=== PATIENT | male | born 1965 | race Caucasian/White ===

== ENCOUNTER 2019-03-03 08:21 | Day surgery (SDC) | payer OTHER ==
[2019-03-03 08:39] VITALS: BMI 34.9
[2019-03-03] MEDS ORDERED: CEFAZOLIN 1 GM/D5W 2 GM/100 ML BAG ONE (08:41)
[2019-03-03 09:37] VITALS: TEMP 98.7
[2019-03-03 10:05] VITALS: PULSE 60
[2019-03-03 11:11] LABS: BASO % 0.6 % (0-2.0); EOS % 1.7 % (0-4.5); HEMATOCRIT 40.2 % (35.4-49); HEMOGLOBIN 13.4 GM/dL (11.7-16.9); INR 1.4 (0.83-1.09); MCH 34.3 pg (25.7-33.7); MCHC 33.5 g/dl (32.0-35.9); MEAN CELL VOLUME 102.5 fl (80-96); MEAN PLT VOLUME 8.9 fl (7.5-11.1); MONO % 10.7 % (3.8-10.2); PLATELET COUNT 135 K/MM3 (134-434); PROTHROMBIN TIME (PATIENT) 16.6 SEC (9.7-13.0); RBC 3.92 M/mm3 (4.00-5.60); RDW 12.9 % (11.9-15.9); WHITE BLOOD COUNT 5.8 K/mm3 (4.0-10.0)
[2019-03-03 11:34] VITALS: BP 125/82
[2019-03-03 12:09] LABS: ALBUMIN 2.9 g/dl (3.4-5.0); BILIRUBIN,DIRECT 0.7 mg/dL (0.0-0.2); BILIRUBIN,TOTAL 1.4 mg/dL (0.2-1); BLOOD UREA NITROGEN 5.9 mg/dL (7-18); CALCIUM 8.8 mg/dL (8.5-10.1); CREATININE 0.6 mg/dL (0.55-1.3); POTASSIUM 3.9 mmol/L (3.5-5.1); TOT PROT 6.4 g/dl (6.4-8.2)
--- NOTE | 2019-03-04 16:13 | PATH ---
Surgical Pathology Report Patient Name: NURIA BRUCE [facility]. Rec. #: [id number] /Age/Gender: 1965 (Age: 53) / M Account: [id number] Location: [facility]-ENDOSCOPY Taken: 03/03/2019 Received: 03/03/2019 Reported: 03/04/2019 Physicians: Sathish Walsh M.D. Specimen(s) Received A: SECOND PORTION DUODENUM AND BULB B: ANTRUM Clinical History Screening for varices Postoperative diagnosis: Early varices, gastric ulcer, gastritis Final Diagnosis A. DUODENUM, SECOND PORTION AND DUODENAL BULB, BIOPSY: DUODENAL MUCOSA WITH SMALL LYMPHOID AGGREGATE. B. STOMACH, ANTRUM, BIOPSY: GASTRIC ANTRAL MUCOSA WITH MODERATE CHRONIC GASTRITIS. IMMUNOHISTOCHEMICAL STAIN FOR H. PYLORI IS NEGATIVE. Electronically Signed Staci Fitch M.D. Gross Description A. Received in formalin, labeled "biopsy second portion of duodenum and duodenal bulb" are 4 mata, irregular portions of soft tissue ranging from 0.1-0.4 cm. in greatest dimension. The specimens are submitted in toto in one cassette. B. Received in formalin, labeled "biopsy antrum" are 4 mata, irregular portions of soft tissue ranging from 0.2-0.5 cm. in greatest dimension. The specimens are submitted in toto in one cassette. 03/03/201903/03/2019
== END 2019-03-03 10:35 | disposition home or self-care (01) ==
LOC: JASU-ENDO 08:21
PROVIDERS: ATTEND Internal Medicine Gastroenterology
PROC: 0DB68ZX Excision of Stomach, Via Natural or Artificial Opening Endoscopic, Diagnostic (ICD-10-PCS; principal; 2019-03-03 09:00)
DX: I85.00 Esophageal varices without bleeding (principal); K21.0 Gastro-esophageal reflux disease with esophagitis; K25.9 Gastric ulcer, unspecified as acute or chronic, without hemorrhage or perforation; K29.70 Gastritis, unspecified, without bleeding
CPT/HCPCS: 36415; 80053; 82248; 83036; 85025; 85610; 86140; 88305-TC; 88342-TC

== ENCOUNTER 2019-07-04 08:14 | Day surgery (SDC) | payer OTHER ==
[2019-07-03 12:55] VITALS: BMI 30.8
[2019-07-04] MEDS ORDERED: TETRACAINE/BENZOCAINE/BUTAMBEN 20 GM SPR TP ONE (09:17)
[2019-07-04 09:53] VITALS: TEMP 98.3
[2019-07-04 10:35] VITALS: BP 116/84; PULSE 71
--- NOTE | 2019-07-07 17:22 | PATH ---
Surgical Pathology Report Patient Name: NURIA BRUCE [facility]. Rec. #: [id number] /Age/Gender: 1965 (Age: 54) / M Account: [id number] Location: [facility]-ENDOSCOPY Taken: 07/04/2019 Received: 07/04/2019 Reported: 07/07/2019 Physicians: Sathish Walsh M.D. Specimen(s) Received ANTRAL ULCERATED POLYP BX Clinical History History of pyloric ulcer Postoperative diagnosis: Ulcerated polyp Final Diagnosis ANTRAL ULCERATED POLYP, BIOPSY: POLYPOID GASTRIC ANTRAL MUCOSA WITH SEVERE CHRONIC ACTIVE GASTRITIS AND REACTIVE/REGENERATIVE CHANGES. IMMUNOHISTOCHEMICAL STAIN FOR H. PYLORI IS NEGATIVE. Electronically Signed Staci Fitch M.D. Gross Description Received in formalin, labeled "antral ulcerated polyp" are 3 mata, irregular portions of soft tissue ranging from 0.3-0.5 cm. in greatest dimension. The specimens are submitted in toto in one cassette. 07/04/2019 saudi07/04/2019
== END 2019-07-04 10:35 | disposition home or self-care (01) ==
LOC: JASU-ENDO 08:14
PROVIDERS: ATTEND Internal Medicine Gastroenterology
PROC: 0DB68ZX Excision of Stomach, Via Natural or Artificial Opening Endoscopic, Diagnostic (ICD-10-PCS; principal; 2019-07-04 09:00)
DX: K31.7 Polyp of stomach and duodenum (principal)
CPT/HCPCS: 88305-TC

== ENCOUNTER → 2020-04-29 | Day surgery (SDC) | payer OTHER ==
[2020-04-28 14:23] VITALS: BMI 35.3
[~2020-04-29] MED LIST: BENZOIN/ALOE VERA/STORAX/TOLU 58 ML BOTTLE ONE; BUPIVACAINE HCL/PF 0.5% (5 MG/ML) 30 ML VIAL IJ ONE; DESFLURANE GAS 240 ML BOTTLE IH ONE; DEXAMETHASONE SOD PHOSPHATE 4 MG/1 ML VIAL ONE; LACTATED RINGERS SOLUTION 1,000 ML IV SCH; LIDOCAINE HCL 1%, 10 MG/ML (20ML VIAL) ONE; LIDOCAINE HCL 1%, 10 MG/ML (20ML VIAL) PNB ONE; MIDAZOLAM HCL 2 MG/2 ML SINGLE DOSE VIAL ONE; ONDANSETRON 4 MG/2 ML VIAL IVPUSH PRN; PROPOFOL 20 ML ONE; SUCCINYLCHOLINE CHLORIDE 200 MG/10 ML SYRINGE ONE; ceFAZolin SODIUM 1 GM VIAL IVPB ONE; ceFAZolin SODIUM 1 GM VIAL ONE; oxyCODONE HCL 5 MG TABLET PO PRN
--- NOTE | 2020-04-29 11:00 | OP ---
DATE OF OPERATION: 04/29/2020 SURGEON: Tala Stephens DPM PRODUCT STRATEGY DIRECTOR: Dilip Geller DPM PREOPERATIVE DIAGNOSES: Left plantarflexed 4th metatarsal with hypertrophic plantar condyles chronic tender pretrophic ulcer sub 4th metatarsal head left foot, onycholysis left hallux nail. POSTOPERATIVE DIAGNOSES: Same OPERATION: 1. Left 4th plantar condylectomy. 2. Temporary Removal of hallux nail, left foot. TYPE OF ANESTHESIA: Local MAC; 10 mL of 1:1 lidocaine 1% with 0.5% Marcaine plain was given in and around the proposed incision site. ESTIMATED BLOOD LOSS: 20 mL. HEMOSTASIS: Achieved with meticulous dissection and ankle tourniquet at 250 mmHg. DESCRIPTION OF PROCEDURE: Patient was brought to the operating room and placed supine on the operating room table. After adequate IV sedation was administered, 10 mL of a 1:1 lidocaine/Marcaine mix were given in and around the proposed incision site in a tariq block fashion. The foot was then prepped and draped in the usual aseptic fashion. A well padded ankle tourniquette was applied prior to prep. Attention was then directed to a lazy S incision over the left 4th metatarsophalangeal joint. This dissection was meticulously carried down to the level of the capsule, noting the extensor tendon which was gently retracted. All vital structures were identified and gently retracted. Utilizing a 15-blade an incision was created over the metatarsal head down to bone. Soft tissue was liberated medially and laterally. The ligaments were released allowing further accessibility to the plantar aspect of the 4th metatarsal head. A McGlamry elevator was used to free up the plantar aspect of the 4th metatarsophalangeal joint left foot. This allowed for better exposure of the plantar condyles through the dorsal wound. Utilizing a small sagittal saw the plantar condyles were resected and removed for pathology. Utilizing a small bur this area was remodeled and any spicules removed. Area was palpated no remaining spicules noted. The area was then copiously irrigated with normal saline with bacitracin and the wound was then closed in layers. 3.0 vicryl for subcutaneous closure in a simple interrupted suture fashion. Next attention was directed to the left big toe. Utilizing a [place], the left hallux nail was then liberated from the nail bed and avulsed and sent to pathology. Telfa dressing was applied over nail bed area. Betadine soaked adaptic was applied to incision over 4th mpj left. Dry sterile dressing was applied. Raymon bandage. The patient tolerated the above anesthesia and surgical procedure well and left the operating room, went to the recovery area with vital signs stable and vascular status intact to all digits of the left foot. BEATRICE Davis/[id number] [facility] HOSPITALTerese
[2020-04-29 11:57] VITALS: BP 126/73; PULSE 89; TEMP 97.3
--- NOTE | 2020-04-29 17:46 | OP ---
Operative Note - Note: Operative Date: 04/29/20 Pre-Operative Diagnosis: Plantarflexed 4th metatarsal left with hypertrophic plantar condyles Operation: Plantar condylectomy 4th metatarsal Findings: hypertrophic bone and soft tissue Implants: none Post-Operative Diagnosis: Same as Pre-op Surgeon: Tala Stephens Career Orientation Teacher: Dilip Geller Anesthesia: Local, MAC Specimens Removed: hypertrophic bone Estimated Blood Loss (mls): 5 Operative Report Dictated: No
--- NOTE | 2020-04-30 15:46 | PATH ---
Surgical Pathology Report Patient Name: NURIA BRUCE Med. Rec. #: [id number] /Age/Gender: 1965 (Age: 55) / M Account: [id number] Location: [facility] SURGICAL Taken: 04/29/2020 Received: 04/29/2020 Reported: 04/30/2020 Physicians: Tala Stephens DPM Specimen(s) Received A: TISSUE FROM LEFT FORTH METATARSAL B: TOE NAIL FROM LEFT BIG TOE Clinical History Metatarsal pain/chronic ulceration left foot Final Diagnosis A. TISSUE FROM LEFT FOURTH METATARSAL, EXCISION: PORTION OF CARTILAGE CAPPED BONE WITH FATTY MARROW. NEGATIVE FOR OSTEOMYELITIS. B. TOENAIL FROM LEFT BIG TOE, EXCISION: PORTION OF NAIL PLATE WITH FOCAL HEMORRHAGE AND ACUTE INFLAMMATION. PAS STAIN FAILED TO REVEAL FUNGAL HYPHAE. Electronically Signed Benita Mcwilliams M.D. Gross Description A. Received in formalin labeled "tissue from left fourth metatarsal," is a 0.9 x 0.6 x 0.2 cm mata-red portion of bone. The specimen is submitted in toto in one cassette, following decalcification. B. Received in formalin labeled "toenail from left big toe," is a 2.5 x 1.5 x 0.2 cm yellow-brown portion of unguis. Administration Clerk sections are submitted in one cassette. /04/29/2020 saudi/04/29/2020
== END | disposition home or self-care (01) ==
LOC: JASU-SURG 04:18
PROVIDERS: ATTEND Podiatrist Foot Surgery
PROC: 0HDRXZZ Extraction of Toe Nail, External Approach (ICD-10-PCS; 2020-04-29)
PROC: 0QBP0ZZ Excision of Left Metatarsal, Open Approach (ICD-10-PCS; principal; 2020-04-29 07:30)
DX: M21.6X2 Other acquired deformities of left foot (principal); M89.371 Hypertrophy of bone, right ankle and foot; L97.529 Non-pressure chronic ulcer of other part of left foot with unspecified severity; L60.1 Onycholysis
CPT/HCPCS: 73630-TC-LT; 82962; 88304-TC; 88305-TC; 88311-TC; 88312-TC; 94760; 97116-GP

== ENCOUNTER 2020-07-28 06:05 | Day surgery (SDC) | payer OTHER ==
[2020-07-27 17:53] VITALS: BMI 35.9
[2020-07-28] MEDS ORDERED: PROPOFOL 20 ML ONE ×2 (08:34→11:46)
[2020-07-28] MEDS ORDERED: MIDAZOLAM HCL 2 MG/2 ML SINGLE DOSE VIAL ONE ×3 (08:34→08:38)
[2020-07-28] MEDS ORDERED: DEXAMETHASONE SOD PHOSPHATE/PF 10 MG/ML SDV ONE (08:46)
[2020-07-28] MEDS ORDERED: ROCURONIUM BROMIDE 50 MG/5 ML SYRINGE ONE ×2 (09:17→09:58)
[2020-07-28] MEDS ORDERED: SUCCINYLCHOLINE CHLORIDE 200 MG/10 ML SYRINGE ONE (09:17)
[2020-07-28] MEDS ORDERED: HYDROmorphone HCl 2 MG/ML VIAL ONE (09:34)
[2020-07-28] MEDS ORDERED: ceFAZolin SODIUM 1 GM VIAL IVPB ONE (09:45)
[2020-07-28] MEDS ORDERED: VASOPRESSIN 20 UNITS/ML VIAL IV ONE (10:03)
[2020-07-28] MEDS ORDERED: oxyCODONE HCL 5 MG TABLET PO PRN (10:17)
[2020-07-28] MEDS ORDERED: ONDANSETRON 4 MG/2 ML VIAL IVPUSH PRN (10:17)
[2020-07-28] MEDS ORDERED: DEXAMETHASONE SOD PHOSPHATE 4 MG/1 ML VIAL ONE (10:26)
[2020-07-28] MEDS ORDERED: ceFAZolin SODIUM 1 GM VIAL ONE ×2 (10:26→13:38)
[2020-07-28] MEDS ORDERED: LACTATED RINGERS SOLUTION 1,000 ML IV SCH (10:30)
[2020-07-28] MEDS ORDERED: GLYCOPYRROLATE 0.2 MG/1 ML VIAL ONE (11:36)
[2020-07-28] MEDS ORDERED: NEOSTIGMINE METHYLSULFATE 0.5 MG/1 ML - 10 ML MDV ONE (11:36)
[2020-07-28] MEDS ORDERED: ONDANSETRON 4 MG/2 ML VIAL ONE (12:57)
[2020-07-28] MEDS ORDERED: CEFAZOLIN 3 GM in DEXTROSE 5%-WATER - 100 ML IVPB ONE (13:00)
[2020-07-28 13:37] VITALS: TEMP 98
[2020-07-28 16:06] VITALS: BP 152/101; PULSE 106
== END 2020-07-28 15:45 | disposition home or self-care (01) ==
LOC: JASU-SURG 06:05
PROVIDERS: ATTEND Orthopaedic Surgery
PROC: 0PSF06Z Reposition Right Humeral Shaft with Intramedullary Internal Fixation Device, Open Approach (ICD-10-PCS; principal; 2020-07-28 09:30)
DX: S42.291A Other displaced fracture of upper end of right humerus, initial encounter for closed fracture (principal); X58.XXXA Exposure to other specified factors, initial encounter; Y93.9 Activity, unspecified; Y92.9 Unspecified place or not applicable; Y99.9 Unspecified external cause status
CPT/HCPCS: 24516; C1713; 76000-TC-FY; 82962; 94760

== ENCOUNTER 2020-09-01 04:17 | Day surgery (SDC) | payer OTHER ==
[2020-08-30 16:56] VITALS: BMI 35.9
[2020-09-01] MEDS ORDERED: LIDOCAINE HCL 1%, 10 MG/ML (20ML VIAL) ONE (10:22)
[2020-09-01] MEDS ORDERED: MIDAZOLAM HCL 2 MG/2 ML SINGLE DOSE VIAL ONE ×2 (10:23)
[2020-09-01] MEDS ORDERED: HYDROmorphone HCl 2 MG/ML VIAL ONE (10:23)
[2020-09-01] MEDS ORDERED: ceFAZolin SODIUM 1 GM VIAL IVPB ONE (10:33)
[2020-09-01] MEDS ORDERED: LIDOCAINE HCL 1%, 10 MG/ML (20ML VIAL) NR ONE ×2 (10:36)
[2020-09-01] MEDS ORDERED: KETAMINE HCL 200 MG/20 ML VIAL ONE (10:41)
[2020-09-01 12:14] VITALS: BP 144/89; PULSE 75; TEMP 97.5
[2020-09-01] MEDS ORDERED: ONDANSETRON 4 MG/2 ML VIAL IVPUSH PRN (12:37)
[2020-09-01] MEDS ORDERED: oxyCODONE HCL 5 MG TABLET PO PRN ×2 (12:37)
[2020-09-01] MEDS ORDERED: LACTATED RINGERS SOLUTION 1,000 ML IV SCH (12:45)
== END 2020-09-01 13:20 | disposition home or self-care (01) ==
LOC: JASU-SURG 04:17
PROVIDERS: ATTEND Orthopaedic Surgery
PROC: 3E0 Administration, Physiological Systems and Anatomical Regions, Introduction (ICD-10-PCS; 2020-09-01)
PROC: 0XP60YZ Removal of Other Device from Right Upper Extremity, Open Approach (ICD-10-PCS; principal; 2020-09-01 09:30)
DX: T84.89XA Other specified complication of internal orthopedic prosthetic devices, implants and grafts, initial encounter (principal)
CPT/HCPCS: 76000-TC-FY; 82962; 88300-TC

== ENCOUNTER 2022-09-20 04:39 | Day surgery (SDC) | payer OTHER ==
[2022-08-22 09:31] VITALS: BMI 35.9
[2022-09-20] MEDS ORDERED: TETRACAINE/BENZOCAINE/BUTAMBEN 20 GM SPR TP ONE ×2 (10:43)
[2022-09-20 12:24] VITALS: TEMP 98
[2022-09-20 12:27] VITALS: PULSE 68
[2022-09-20 13:08] VITALS: BP 116/69; RESP 18
== END 2022-09-20 13:06 | disposition home or self-care (01) ==
LOC: JASU-ENDO 04:39
PROVIDERS: ATTEND Internal Medicine Gastroenterology
PROC: 0DBM8ZX Excision of Descending Colon, Via Natural or Artificial Opening Endoscopic, Diagnostic (ICD-10-PCS; 2022-09-20)
PROC: 0DBC8ZX Excision of Ileocecal Valve, Via Natural or Artificial Opening Endoscopic, Diagnostic (ICD-10-PCS; 2022-09-20)
PROC: 0DB98ZX Excision of Duodenum, Via Natural or Artificial Opening Endoscopic, Diagnostic (ICD-10-PCS; 2022-09-20)
PROC: 0DB78ZX Excision of Stomach, Pylorus, Via Natural or Artificial Opening Endoscopic, Diagnostic (ICD-10-PCS; 2022-09-20)
PROC: 0DBH8ZX Excision of Cecum, Via Natural or Artificial Opening Endoscopic, Diagnostic (ICD-10-PCS; principal; 2022-09-20 11:00)
DX: Z12.11 Encounter for screening for malignant neoplasm of colon (principal); D12.0 Benign neoplasm of cecum; K63.5 Polyp of colon; K57.30 Diverticulosis of large intestine without perforation or abscess without bleeding; K29.70 Gastritis, unspecified, without bleeding; R63.4 Abnormal weight loss; Z68.35 Body mass index [BMI] 35.0-35.9, adult
CPT/HCPCS: 88305-TC; 88342-TC

== ENCOUNTER 2023-06-05 12:23 | Inpatient (IN) | payer OTHER ==
[2023-06-05] MEDS ORDERED: AZITHROMYCIN IVPB 500 MG in DEXTROSE 5%-WATER - 250 ML IVPB ONE (13:08)
[2023-06-05] MEDS ORDERED: AZITHROMYCIN IVPB 500 MG/250 ML BAG IVPB ONE (13:51)
[2023-06-05] MEDS ORDERED: ALBUTEROL SO4 2.5/IPRATROPIUM 0.5 INH SOL 3 ML VIAL.NEB. NEB ONE (13:51)
[2023-06-05 13:53] LABS: HEMATOCRIT 57.2 % (35.4-49); HEMOGLOBIN 18.8 GM/dL (11.7-16.9); MCH 30.1 pg (25.7-33.7); MCHC 32.9 g/dl (32.0-35.9); MEAN CELL VOLUME 91.4 fl (80-96); MEAN PLT VOLUME 7.5 fl (7.5-11.1); PLATELET COUNT 306 10^3/uL (134-434); RBC 6.26 M/mm3 (4.00-5.60); RDW 15.9 % (11.9-15.9); WHITE BLOOD COUNT 25.4 K/mm3 (4.0-10.0)
[2023-06-05] MEDS: ALBUTEROL SO4 2.5/IPRATROPIUM 0.5 INH SOL 3 ML VIAL.NEB. NEB SCH ×7 (14:08→17:39)
[2023-06-05 14:10] LABS: POTASSIUM 4.2 mmol/L (3.5-5.1)
[2023-06-05 14:12] LABS: ALBUMIN 3.6 g/dl (3.4-5.0); CALCIUM 9.2 mg/dL (8.5-10.1)
[2023-06-05 14:13] LABS: BLOOD UREA NITROGEN 23.7 mg/dL (7-18)
[2023-06-05 14:16] LABS: CREATININE 1.1 mg/dL (0.55-1.3)
[2023-06-05 14:17] LABS: BILIRUBIN,TOTAL 2.9 mg/dL (0.2-1)
[2023-06-05 14:20] LABS: N-TERMINAL BNP 10923.2 pg/ml (5-125)
[2023-06-05 14:25] LABS: LACTIC ACID 2.2 mmol/L (0.4-2.0)
[2023-06-05] MEDS ORDERED: BENZOIN/ALOE VERA/STORAX/TOLU 58 ML BOTTLE ONE (14:35)
[2023-06-05 14:37] LABS: ANISOCYTOSIS 1+; MACROCYTOSIS 0
[2023-06-05 17:02] LABS: URINE APPEARANCE CLEAR; URINE BILIRUBIN NEGATIVE (NEGATIVE); URINE COLOR YELLOW; URINE GLUCOSE (UA) 3+ (NEGATIVE); URINE KETONE 1+ (NEGATIVE); URINE LEUK ESTERASE NEGATIVE (NEGATIVE); URINE NITRITE NEGATIVE (NEGATIVE); URINE PROTEIN TRACE (NEGATIVE); URINE UROBILINOGEN 0.2 mg/dL (0.2-1.0)
[2023-06-05] MEDS ORDERED: ASPIRIN 81 MG CHEWABLE TABLETS ONE (17:08)
[2023-06-05] MEDS: ASPIRIN 81 MG CHEWABLE TABLETS PO ONE ×2 (17:08→17:12)
[2023-06-05] MEDS ORDERED: ALBUTEROL SO4 2.5/IPRATROPIUM 0.5 INH SOL 3 ML VIAL.NEB. NEB PRN (17:47)
[2023-06-05] MEDS ORDERED: methylPREDNISolone NA SUCC 40 MG/1 ML VIAL IVPUSH SCH (18:00)
[2023-06-05] MEDS ORDERED: CEFTRIAXONE 1 GM/50 ML BAG ONE (18:42)
[2023-06-05] MEDS ORDERED: methylPREDNISolone NA SUCC 40 MG/1 ML VIAL ONE (18:42)
[2023-06-05] MEDS: CEFTRIAXONE 1 GM in DEXTROSE 5%-WATER - 50 ML IVPB SCH (18:55)
[2023-06-06] MEDS ORDERED: INSULIN (NOVOLOG) ASPART 100 UNITS/ML 10ML VIAL SQ ONE (00:11)
[2023-06-06 01:27] LABS: CHLORIDE 87 mmol/L (98-107); POTASSIUM 4.6 mmol/L (3.5-5.1); SODIUM 129 mmol/L (136-145)
[2023-06-06 01:29] LABS: ALBUMIN 3.7 g/dl (3.4-5.0); ANION GAP 20 MMOL/L (8-16); BLOOD UREA NITROGEN 34.8 mg/dL (7-18); CALCIUM 9.4 mg/dL (8.5-10.1); CO2 21 mmol/L (21-32)
[2023-06-06 01:33] LABS: CREATININE 1.6 mg/dL (0.55-1.3); SGOT/AST 21 U/L (15-37); SGPT/ALT 25 U/L (13-61)
[2023-06-06 01:35] LABS: BILIRUBIN,TOTAL 2.1 mg/dL (0.2-1); TOT PROT 9.5 g/dl (6.4-8.2)
[2023-06-06 01:36] LABS: ALK PHOS 166 U/L (45-117)
[2023-06-06 02:16] LABS: GLUCOSE,RANDOM 540 mg/dL (74-106)
[2023-06-06 06:54] LABS: HEMATOCRIT 53.9 % (35.4-49); HEMOGLOBIN 18.3 GM/dL (11.7-16.9); MCH 31.4 pg (25.7-33.7); MCHC 33.9 g/dl (32.0-35.9); MEAN CELL VOLUME 92.6 fl (80-96); MEAN PLT VOLUME 7.9 fl (7.5-11.1); PLATELET COUNT 330 10^3/uL (134-434); RBC 5.82 M/mm3 (4.00-5.60); RDW 15.7 % (11.9-15.9)
[2023-06-06] MEDS: INSULIN SLIDING SCALE (NOVOLOG) 1 VIAL SQ SCH ×4 (08:10→21:49)
[2023-06-06] MEDS ORDERED: INSULIN SLIDING SCALE (NOVOLOG) 1 VIAL SQ ONE ×3 (08:16→16:54)
[2023-06-06 08:51] LABS: ANISOCYTOSIS 0; HELMET CELLS 0; HOWELL-JOLLY BODIES 0; MACROCYTOSIS 0; OVALOCYTE 0; ROULEAU 0; SICKELED CELLS 0; TARGET CELLS 0; TEAR DROP CELLS 0; TOXIC GRANULATION 0
[2023-06-06] MEDS: ENOXAPARIN NA (PORCINE) 40 MG/0.4 ML DISP.SYRIN SQ SCH (09:10)
[2023-06-06] MEDS ORDERED: NADOLOL 40 MG TABLET (FP) PO SCH (10:00)
[2023-06-06] MEDS ORDERED: SPIRONOLACTONE 25 MG TABLET PO SCH (10:00)
[2023-06-06] MEDS ORDERED: FUROSEMIDE 40 MG/4 ML INJECTABLE VIAL IVPUSH SCH (10:00)
[2023-06-06] MEDS ORDERED: AZITHROMYCIN IVPB 250 MG in DEXTROSE 5%-WATER - 250 ML IVPB SCH (10:00)
[2023-06-06] MEDS: NADOLOL 40 MG TABLET (FP) PO SCH (11:01)
[2023-06-06] MEDS: CEFTRIAXONE 1 GM in DEXTROSE 5%-WATER - 50 ML IVPB SCH (11:01)
[2023-06-06] MEDS ORDERED: SODIUM CHLORIDE 1,000 ML IV SCH ×2 (12:00)
[2023-06-06 14:27] VITALS: BMI 31.6
[2023-06-06] MEDS: PIPERACILLIN/TAZOB 2.25 GM 2.25 GM in DEXTROSE 5%-WATER - 50 ML IVPB SCH ×2 (14:40→20:24)
[2023-06-06] MEDS: COLLAGENASE CLOSTRIDIUM HIST. 30 GRAMS TUBE TP SCH (20:00)
[2023-06-06] MEDS: ALBUTEROL SO4 2.5/IPRATROPIUM 0.5 INH SOL 3 ML VIAL.NEB. NEB PRN (20:17)
[2023-06-06] MEDS: INSULIN (LEVEMIR) 100 UNITS/ML UNITS SQ SCH (21:49)
[2023-06-06] MEDS: BUDESONIDE/FORMETEROL FUMARATE 160/4.5 mcg INHALER IH SCH (21:50)
[2023-06-07] MEDS: PIPERACILLIN/TAZOB 2.25 GM 2.25 GM in DEXTROSE 5%-WATER - 50 ML IVPB SCH ×4 (02:25→20:58)
[2023-06-07] MEDS: INSULIN SLIDING SCALE (NOVOLOG) 1 VIAL SQ SCH ×4 (06:16→21:24)
[2023-06-07] MEDS: ALBUTEROL SO4 2.5/IPRATROPIUM 0.5 INH SOL 3 ML VIAL.NEB. NEB PRN ×2 (06:35→15:22)
[2023-06-07] MEDS ORDERED: INSULIN (LEVEMIR) 100 UNITS/ML UNITS SQ SCH ×2 (07:00→15:29)
[2023-06-07] MEDS: INSULIN (NOVOLOG) ASPART 100 UNITS/ML 10ML VIAL SQ SCH ×3 (08:05→16:45)
[2023-06-07 09:26] LABS: HEMATOCRIT 48.8 % (35.4-49); HEMOGLOBIN 16.3 GM/dL (11.7-16.9); MCH 30.5 pg (25.7-33.7); MCHC 33.5 g/dl (32.0-35.9); MEAN CELL VOLUME 91.3 fl (80-96); MEAN PLT VOLUME 7.6 fl (7.5-11.1); PLATELET COUNT 302 10^3/uL (134-434); RBC 5.34 M/mm3 (4.00-5.60); RDW 15.5 % (11.9-15.9); WHITE BLOOD COUNT 22.4 K/mm3 (4.0-10.0)
[2023-06-07] MEDS: NADOLOL 40 MG TABLET (FP) PO SCH (09:26)
[2023-06-07] MEDS: ENOXAPARIN NA (PORCINE) 40 MG/0.4 ML DISP.SYRIN SQ SCH (09:27)
[2023-06-07] MEDS: BUDESONIDE/FORMETEROL FUMARATE 160/4.5 mcg INHALER IH SCH ×2 (09:27→21:24)
[2023-06-07 10:03] LABS: ANISOCYTOSIS 0; HELMET CELLS 0; HOWELL-JOLLY BODIES 0; MACROCYTOSIS 0; OVALOCYTE 0; ROULEAU 0; SICKELED CELLS 0; TARGET CELLS 0; TEAR DROP CELLS 0; TOXIC GRANULATION 0
[2023-06-07 10:13] LABS: BLOOD UREA NITROGEN 35.7 mg/dL (7-18)
[2023-06-07 10:14] LABS: ALBUMIN 3.2 g/dl (3.4-5.0)
[2023-06-07 10:15] LABS: CREATININE 0.8 mg/dL (0.55-1.3)
[2023-06-07 10:17] LABS: BILIRUBIN,TOTAL 1.1 mg/dL (0.2-1)
[2023-06-07 10:25] LABS: CALCIUM 9.1 mg/dL (8.5-10.1)
[2023-06-07 12:36] LABS: POTASSIUM 3.9 mmol/L (3.5-5.1); TOT PROT 7.4 g/dl (6.4-8.2)
[2023-06-07] MEDS: COLLAGENASE CLOSTRIDIUM HIST. 30 GRAMS TUBE TP SCH (16:00)
[2023-06-07] MEDS: INSULIN (LEVEMIR) 100 UNITS/ML UNITS SQ SCH (21:24)
[2023-06-08] MEDS: PIPERACILLIN/TAZOB 2.25 GM 2.25 GM in DEXTROSE 5%-WATER - 50 ML IVPB SCH ×4 (02:04→21:43)
[2023-06-08] MEDS: INSULIN SLIDING SCALE (NOVOLOG) 1 VIAL SQ SCH ×5 (06:30→21:56)
[2023-06-08] MEDS ORDERED: PIPERACILLIN/TAZOBACTAM 2.25 GM VIAL IVPB ONE ×2 (08:50→15:48)
[2023-06-08] MEDS: ENOXAPARIN NA (PORCINE) 40 MG/0.4 ML DISP.SYRIN SQ SCH (10:44)
[2023-06-08] MEDS: NADOLOL 20 MG TABLET (FP) PO SCH (10:44)
[2023-06-08] MEDS: BUDESONIDE/FORMETEROL FUMARATE 160/4.5 mcg INHALER IH SCH ×2 (10:45→21:50)
[2023-06-08] MEDS: INSULIN (NOVOLOG) ASPART 100 UNITS/ML 10ML VIAL SQ SCH ×4 (10:46→18:53)
[2023-06-08 12:19] LABS: POTASSIUM 3.8 mmol/L (3.5-5.1)
[2023-06-08 12:22] LABS: BLOOD UREA NITROGEN 26.4 mg/dL (7-18); CALCIUM 8.3 mg/dL (8.5-10.1)
[2023-06-08 12:25] LABS: CREATININE 0.8 mg/dL (0.55-1.3)
[2023-06-08] MEDS: ALBUTEROL SO4 2.5/IPRATROPIUM 0.5 INH SOL 3 ML VIAL.NEB. NEB PRN ×2 (15:51→22:04)
[2023-06-08] MEDS ORDERED: DEXTROSE 50%-WATER - 25 GM/50 ML VIAL IVPUSH ONE (17:45)
[2023-06-08] MEDS: COLLAGENASE CLOSTRIDIUM HIST. 30 GRAMS TUBE TP SCH (18:51)
[2023-06-08] MEDS: INSULIN (LEVEMIR) 100 UNITS/ML UNITS SQ SCH (21:56)
[2023-06-09] MEDS: PIPERACILLIN/TAZOB 2.25 GM 2.25 GM in DEXTROSE 5%-WATER - 50 ML IVPB SCH ×3 (02:08→15:31)
[2023-06-09] MEDS: INSULIN (LEVEMIR) 100 UNITS/ML UNITS SQ SCH (06:19)
[2023-06-09 07:00] LABS: POTASSIUM 4.1 mmol/L (3.5-5.1)
[2023-06-09 07:02] LABS: ALBUMIN 2.8 g/dl (3.4-5.0); BLOOD UREA NITROGEN 18.8 mg/dL (7-18); CALCIUM 8.3 mg/dL (8.5-10.1)
[2023-06-09 07:06] LABS: CREATININE 0.8 mg/dL (0.55-1.3)
[2023-06-09 07:07] LABS: BILIRUBIN,TOTAL 0.7 mg/dL (0.2-1); TOT PROT 6.3 g/dl (6.4-8.2)
[2023-06-09 07:27] LABS: BASO % 0.4 % (0-2.0); EOS % 1.8 % (0-4.5); HEMATOCRIT 44.2 % (35.4-49); LYMPH % 18.1 % (8-40); MCH 30.9 pg (25.7-33.7); MCHC 33.8 g/dl (32.0-35.9); MEAN CELL VOLUME 91.3 fl (80-96); MEAN PLT VOLUME 7.7 fl (7.5-11.1); MONO % 12.1 % (3.8-10.2); NEUT % 67.6 % (42.8-82.8); PLATELET COUNT 229 10^3/uL (134-434); RBC 4.84 M/mm3 (4.00-5.60); RDW 15.2 % (11.9-15.9); WHITE BLOOD COUNT 11.8 K/mm3 (4.0-10.0)
[2023-06-09] MEDS: ALBUTEROL SO4 2.5/IPRATROPIUM 0.5 INH SOL 3 ML VIAL.NEB. NEB PRN ×2 (08:00→15:25)
[2023-06-09] MEDS: INSULIN SLIDING SCALE (NOVOLOG) 1 VIAL SQ SCH ×4 (08:32→23:00)
[2023-06-09] MEDS ORDERED: INSULIN (LEVEMIR) 100 UNITS/ML UNITS SQ ONE (08:35)
[2023-06-09] MEDS ORDERED: INSULIN SLIDING SCALE (NOVOLOG) 1 VIAL SQ ONE ×2 (08:35→12:17)
[2023-06-09] MEDS: ENOXAPARIN NA (PORCINE) 40 MG/0.4 ML DISP.SYRIN SQ SCH (09:36)
[2023-06-09] MEDS: BUDESONIDE/FORMETEROL FUMARATE 160/4.5 mcg INHALER IH SCH ×2 (09:37→23:00)
[2023-06-09] MEDS: NADOLOL 20 MG TABLET (FP) PO SCH (09:37)
[2023-06-09] MEDS: COLLAGENASE CLOSTRIDIUM HIST. 30 GRAMS TUBE TP SCH (12:36)
[2023-06-09] MEDS: PIPERACILLIN/TAZOB 3.375 GM 3.375 GM in DEXTROSE 5%-WATER - 50 ML IVPB SCH ×2 (15:35→17:33)
[2023-06-10] MEDS: PIPERACILLIN/TAZOB 3.375 GM 3.375 GM in DEXTROSE 5%-WATER - 50 ML IVPB SCH ×3 (01:53→18:14)
[2023-06-10] MEDS: INSULIN SLIDING SCALE (NOVOLOG) 1 VIAL SQ SCH ×4 (06:07→22:04)
[2023-06-10] MEDS: INSULIN (LEVEMIR) 100 UNITS/ML UNITS SQ SCH (06:08)
[2023-06-10] MEDS: ENOXAPARIN NA (PORCINE) 40 MG/0.4 ML DISP.SYRIN SQ SCH (09:54)
[2023-06-10] MEDS: NADOLOL 40 MG TABLET (FP) PO SCH (09:55)
[2023-06-10] MEDS: BUDESONIDE/FORMETEROL FUMARATE 160/4.5 mcg INHALER IH SCH ×2 (09:59→22:05)
[2023-06-10] MEDS: ALBUTEROL SO4 2.5/IPRATROPIUM 0.5 INH SOL 3 ML VIAL.NEB. NEB PRN ×2 (10:10→20:33)
[2023-06-10] MEDS ORDERED: INSULIN SLIDING SCALE (NOVOLOG) 1 VIAL SQ SCH (13:58)
[2023-06-10] MEDS ORDERED: INSULIN (LEVEMIR) 100 UNITS/ML UNITS SQ SCH ×2 (13:58→16:10)
[2023-06-10] MEDS: COLLAGENASE CLOSTRIDIUM HIST. 30 GRAMS TUBE TP SCH (14:48)
[2023-06-10] MEDS: amLODIPine BESYLATE 5 MG TABLET (FP) PO SCH (14:53)
[2023-06-10] MEDS: INSULIN (NOVOLOG) ASPART 100 UNITS/ML 10ML VIAL SQ SCH (17:16)
[2023-06-11] MEDS: PIPERACILLIN/TAZOB 3.375 GM 3.375 GM in DEXTROSE 5%-WATER - 50 ML IVPB SCH ×3 (01:37→17:28)
[2023-06-11] MEDS: INSULIN (NOVOLOG) ASPART 100 UNITS/ML 10ML VIAL SQ SCH ×3 (07:56→17:26)
[2023-06-11 08:12] LABS: BASO % 0.5 % (0-2.0); EOS % 1.5 % (0-4.5); HEMATOCRIT 46.4 % (35.4-49); HEMOGLOBIN 15.4 GM/dL (11.7-16.9); LYMPH % 17.4 % (8-40); MCH 30.3 pg (25.7-33.7); MCHC 33.2 g/dl (32.0-35.9); MEAN CELL VOLUME 91.3 fl (80-96); MEAN PLT VOLUME 7.7 fl (7.5-11.1); MONO % 11.5 % (3.8-10.2); NEUT % 69.1 % (42.8-82.8); PLATELET COUNT 265 10^3/uL (134-434); RBC 5.08 M/mm3 (4.00-5.60); RDW 15.7 % (11.9-15.9); WHITE BLOOD COUNT 12.9 K/mm3 (4.0-10.0)
[2023-06-11 08:30] LABS: POTASSIUM 4.4 mmol/L (3.5-5.1)
[2023-06-11 08:37] LABS: CALCIUM 9.1 mg/dL (8.5-10.1)
[2023-06-11 08:38] LABS: BLOOD UREA NITROGEN 17.7 mg/dL (7-18)
[2023-06-11 08:41] LABS: CREATININE 0.9 mg/dL (0.55-1.3)
[2023-06-11 08:42] LABS: BILIRUBIN,TOTAL 1.1 mg/dL (0.2-1)
[2023-06-11 08:43] LABS: TOT PROT 6.7 g/dl (6.4-8.2)
[2023-06-11] MEDS: BUDESONIDE/FORMETEROL FUMARATE 160/4.5 mcg INHALER IH SCH ×2 (09:21→22:18)
[2023-06-11] MEDS: COLLAGENASE CLOSTRIDIUM HIST. 30 GRAMS TUBE TP SCH (09:21)
[2023-06-11] MEDS: NADOLOL 40 MG TABLET (FP) PO SCH (09:22)
[2023-06-11] MEDS: amLODIPine BESYLATE 5 MG TABLET (FP) PO SCH (09:22)
[2023-06-11] MEDS: ENOXAPARIN NA (PORCINE) 40 MG/0.4 ML DISP.SYRIN SQ SCH (09:23)
[2023-06-11] MEDS: ALBUTEROL SO4 2.5/IPRATROPIUM 0.5 INH SOL 3 ML VIAL.NEB. NEB PRN (11:24)
[2023-06-11] MEDS: INSULIN SLIDING SCALE (NOVOLOG) 1 VIAL SQ SCH ×4 (11:52→23:18)
[2023-06-11] MEDS ORDERED: INSULIN SLIDING SCALE (NOVOLOG) 1 VIAL SQ ONE ×2 (11:57→17:04)
[2023-06-11] MEDS ORDERED: INSULIN (NOVOLOG) ASPART 100 UNITS/ML 10ML VIAL SQ SCH (16:30)
[2023-06-12 03:00] VITALS: BP 143/85; PULSE 51; RESP 18; TEMP 98.7
[2023-06-12] MEDS: PIPERACILLIN/TAZOB 3.375 GM 3.375 GM in DEXTROSE 5%-WATER - 50 ML IVPB SCH (03:38)
[2023-06-12] MEDS ORDERED: INSULIN (LEVEMIR) 100 UNITS/ML UNITS SQ SCH (07:00)
== END 2023-06-12 01:00 | disposition home or self-care (01) | DRG 280 ==
LOC: JER 12:23 → JERBED 16:41 → J4S 06-06 07:36
PROVIDERS: ADMIT Internal Medicine; ATTEND Internal Medicine
DX: I21.4 Non-ST elevation (NSTEMI) myocardial infarction (principal); J18.9 Pneumonia, unspecified organism; J96.01 Acute respiratory failure with hypoxia; N17.9 Acute kidney failure, unspecified; E87.1 Hypo-osmolality and hyponatremia; E11.9 Type 2 diabetes mellitus without complications; I10 Essential (primary) hypertension; E11.40 Type 2 diabetes mellitus with diabetic neuropathy, unspecified; N28.9 Disorder of kidney and ureter, unspecified; E78.5 Hyperlipidemia, unspecified; D72.829 Elevated white blood cell count, unspecified; D75.1 Secondary polycythemia; E11.65 Type 2 diabetes mellitus with hyperglycemia; K21.9 Gastro-esophageal reflux disease without esophagitis; K57.90 Diverticulosis of intestine, part unspecified, without perforation or abscess without bleeding; R80.9 Proteinuria, unspecified; K70.30 Alcoholic cirrhosis of liver without ascites; E66.9 Obesity, unspecified; Z68.31 Body mass index [BMI] 31.0-31.9, adult; S91.302A Unspecified open wound, left foot, initial encounter; X58.XXXA Exposure to other specified factors, initial encounter; Y93.9 Activity, unspecified; Y92.9 Unspecified place or not applicable
CPT/HCPCS: 0241U-QW; 36415; 71275-TC; 73630-TC-LT; 73718-TC-LT; 76775-TC; 80048; 80053; 81003; 82962; 83036; 83605; 83880; 84484; 85025; 87040; 87899; 93005; 93010; 93306-TC; 93926-TC; 94640; 99291; Q9967

== ENCOUNTER 2023-10-23 15:43 | Inpatient (IN) | payer BC, OTHER ==
[2023-10-23 15:58] VITALS: BMI 36.6
[2023-10-23] MEDS ORDERED: VANCOMYCIN 1 GRAM (PRE-DOCKED) 1,000 MG/250 ML BAG IVPB ONE (18:48)
[2023-10-23] MEDS ORDERED: PIPERACILLIN/TAZOB 4.5 GM 4.5 GM/100 ML BAG IVPB ONE (18:49)
[2023-10-23 19:27] LABS: BASO % 0.3 % (0-2.0); EOS % 0.6 % (0-4.5); HEMATOCRIT 40.2 % (35.4-49); HEMOGLOBIN 13.7 GM/dL (11.7-16.9); LYMPH % 13.5 % (8-40); MCH 31.6 pg (25.7-33.7); MCHC 34.2 g/dl (32.0-35.9); MEAN CELL VOLUME 92.4 fl (80-96); MEAN PLT VOLUME 8.8 fl (7.5-11.1); MONO % 12.3 % (3.8-10.2); NEUT % 73.3 % (42.8-82.8); PLATELET COUNT 189 10^3/uL (134-434); RBC 4.35 M/mm3 (4.00-5.60); RDW 14.2 % (11.9-15.9); WHITE BLOOD COUNT 18.7 K/mm3 (4.0-10.0)
[2023-10-23 19:39] LABS: POTASSIUM 3.2 mmol/L (3.5-5.1)
[2023-10-23 19:42] LABS: CALCIUM 8.5 mg/dL (8.5-10.1)
[2023-10-23] MEDS: PIPERACILLIN/TAZOB 4.5 GM 4.5 GM in DEXTROSE 5%-WATER 100 ML IVPB ONE (19:42)
[2023-10-23 19:43] LABS: ALBUMIN 3.2 g/dl (3.4-5.0); BLOOD UREA NITROGEN 55.7 mg/dL (7-18)
[2023-10-23 19:46] LABS: CREATININE 1.6 mg/dL (0.55-1.3)
[2023-10-23 19:47] LABS: TOT PROT 7.1 g/dl (6.4-8.2)
[2023-10-23 19:48] LABS: BILIRUBIN,TOTAL 1.2 mg/dL (0.2-1)
[2023-10-23] MEDS: VANCOMYCIN 1,000 MG in DEXTROSE 5%-WATER - 250 ML IVPB ONE (20:35)
[2023-10-23] MEDS ORDERED: POTASSIUM CHLORIDE ORAL LIQUID 20 MEQ/15 ML ONE (22:00)
[2023-10-23 22:01] LABS: ERYTHROCYTE SEDIMENTATION RATE 75 mm/hr (0-20)
[2023-10-23] MEDS: POTASSIUM CHLORIDE ORAL LIQUID 20 MEQ/15 ML PO ONE (22:05)
[2023-10-24] MEDS ORDERED: PIPERACILLIN/TAZOB 4.5 GM 4.5 GM in DEXTROSE 5%-WATER 100 ML IVPB SCH (02:00)
[2023-10-24] MEDS ORDERED: PIPERACILLIN/TAZOB 4.5 GM 4.5 GM/100 ML BAG IVPB ONE (02:26)
[2023-10-24] MEDS: PIPERACILLIN/TAZOB 4.5 GM 4.5 GM in DEXTROSE 5%-WATER 100 ML IVPB SCH (02:35)
[2023-10-24] MEDS ORDERED: VANCOMYCIN HCL 1,500 MG in DEXTROSE 5%-WATER - 250 ML IVPB SCH (09:00)
[2023-10-24 09:11] LABS: BASO % 0.3 % (0-2.0); EOS % 0.9 % (0-4.5); HEMATOCRIT 38.8 % (35.4-49); HEMOGLOBIN 12.9 GM/dL (11.7-16.9); LYMPH % 14.3 % (8-40); MCHC 33.3 g/dl (32.0-35.9); MEAN CELL VOLUME 93.2 fl (80-96); MEAN PLT VOLUME 8.6 fl (7.5-11.1); MONO % 11.6 % (3.8-10.2); NEUT % 72.9 % (42.8-82.8); PLATELET COUNT 194 10^3/uL (134-434); RBC 4.16 M/mm3 (4.00-5.60); WHITE BLOOD COUNT 15.3 K/mm3 (4.0-10.0)
[2023-10-24 09:31] LABS: POTASSIUM 3.6 mmol/L (3.5-5.1)
[2023-10-24 09:33] LABS: CALCIUM 8.5 mg/dL (8.5-10.1)
[2023-10-24 09:34] LABS: BLOOD UREA NITROGEN 52.3 mg/dL (7-18)
[2023-10-24 09:37] LABS: CREATININE 1.4 mg/dL (0.55-1.3)
[2023-10-24] MEDS: CLOPIDOGREL BISULFATE 75 MG TABLET (FP) PO SCH (09:53)
[2023-10-24] MEDS: CHOLECALCIFEROL (VIT D3) 1,000 UNIT (25 MCG) TABLET PO SCH (09:53)
[2023-10-24] MEDS: PANTOPRAZOLE 40 MG TABLET PO SCH (09:53)
[2023-10-24] MEDS: ASPIRIN 81 MG CHEWABLE TABLETS PO SCH (09:53)
[2023-10-24] MEDS: APIXABAN 5 MG TABLET PO SCH (09:53)
[2023-10-24] MEDS: LOSARTAN POTASSIUM 25 MG TABLET PO SCH (09:56)
[2023-10-24] MEDS ORDERED: ENOXAPARIN NA (PORCINE) 40 MG/0.4 ML DISP.SYRIN SQ SCH (10:00)
[2023-10-24] MEDS: VANCOMYCIN PREMIX 1.5 GM 1,500 MG/300 ML BAG IVPB SCH (10:12)
[2023-10-24] MEDS: INSULIN ASPART SLIDING SCALE (NOVOLOG) 1 VIAL SQ SCH (17:19)
[2023-10-24] MEDS: PIPERACILLIN/TAZOB 3.375 GM 3.375 GM in DEXTROSE 5%-WATER - 50 ML IVPB SCH (17:39)
[2023-10-24] MEDS: DOXYCYCLINE HYCLATE 100 MG CAPSULE PO SCH (17:39)
[2023-10-25 07:28] LABS: POTASSIUM 3.9 mmol/L (3.5-5.1)
[2023-10-25 07:54] LABS: CALCIUM 8.3 mg/dL (8.5-10.1)
[2023-10-25 07:55] LABS: ALBUMIN 2.9 g/dl (3.4-5.0); BLOOD UREA NITROGEN 31.3 mg/dL (7-18)
[2023-10-25 07:58] LABS: CREATININE 1.2 mg/dL (0.55-1.3)
[2023-10-25 08:00] LABS: BILIRUBIN,TOTAL 1.5 mg/dL (0.2-1); TOT PROT 6.8 g/dl (6.4-8.2)
[2023-10-25 08:30] LABS: HEMATOCRIT 39.2 % (35.4-49); HEMOGLOBIN 13.2 GM/dL (11.7-16.9); MCH 31.6 pg (25.7-33.7); MCHC 33.6 g/dl (32.0-35.9); MEAN PLT VOLUME 8.4 fl (7.5-11.1); PLATELET COUNT 251 10^3/uL (134-434); RBC 4.17 M/mm3 (4.00-5.60); WHITE BLOOD COUNT 13.9 K/mm3 (4.0-10.0)
[2023-10-25] MEDS: SPIRONOLACTONE 25 MG TABLET PO SCH (10:00)
[2023-10-25] MEDS: NADOLOL 40 MG TABLET (FP) PO SCH (10:01)
[2023-10-25 10:03] LABS: ANISOCYTOSIS 1+; MACROCYTOSIS 0
[2023-10-25] MEDS: COLLAGENASE CLOSTRIDIUM HIST. 30 GRAMS TUBE TP SCH (12:09)
[2023-10-25] MEDS: INSULIN ASPART SLIDING SCALE (NOVOLOG) 1 VIAL SQ SCH (21:19)
[2023-10-26 15:12] VITALS: RESP 18
[2023-10-27 09:19] LABS: CREATININE 0.9 mg/dL (0.55-1.3)
[2023-10-27 09:20] LABS: ALBUMIN 2.7 g/dl (3.4-5.0)
[2023-10-27 09:21] LABS: BILIRUBIN,TOTAL 0.9 mg/dL (0.2-1); HEMATOCRIT 38.4 % (35.4-49); HEMOGLOBIN 12.7 GM/dL (11.7-16.9); MCH 31.4 pg (25.7-33.7); MCHC 33.1 g/dl (32.0-35.9); MEAN CELL VOLUME 94.9 fl (80-96); MEAN PLT VOLUME 8.1 fl (7.5-11.1); PLATELET COUNT 303 10^3/uL (134-434); RBC 4.05 M/mm3 (4.00-5.60); RDW 14.5 % (11.9-15.9); TOT PROT 6.6 g/dl (6.4-8.2); WHITE BLOOD COUNT 11.4 K/mm3 (4.0-10.0)
[2023-10-27 12:00] LABS: ANISOCYTOSIS 0; HELMET CELLS 0; HOWELL-JOLLY BODIES 0; MACROCYTOSIS 0; OVALOCYTE 0; ROULEAU 0; SICKELED CELLS 0; TARGET CELLS 0; TEAR DROP CELLS 0; TOXIC GRANULATION 0
[2023-10-28 17:11] LABS: BASO % 0.6 % (0-2.0); EOS % 0.8 % (0-4.5); HEMATOCRIT 38.3 % (35.4-49); HEMOGLOBIN 12.6 GM/dL (11.7-16.9); LYMPH % 26.7 % (8-40); MEAN CELL VOLUME 94.1 fl (80-96); MEAN PLT VOLUME 7.5 fl (7.5-11.1); MONO % 11.8 % (3.8-10.2); NEUT % 60.1 % (42.8-82.8); PLATELET COUNT 376 10^3/uL (134-434); RBC 4.07 M/mm3 (4.00-5.60); RDW 14.3 % (11.9-15.9); WHITE BLOOD COUNT 13.7 K/mm3 (4.0-10.0)
[2023-10-28 17:33] LABS: POTASSIUM 4.6 mmol/L (3.5-5.1)
[2023-10-28 17:36] LABS: ALBUMIN 2.8 g/dl (3.4-5.0); BLOOD UREA NITROGEN 13.9 mg/dL (7-18)
[2023-10-28 17:40] LABS: BILIRUBIN,TOTAL 0.6 mg/dL (0.2-1)
[2023-10-28 17:41] LABS: TOT PROT 6.7 g/dl (6.4-8.2)
[2023-10-29 09:36] VITALS: BP 138/86; PULSE 58; TEMP 98.9
== END 2023-10-29 12:29 | disposition home or self-care (01) | DRG 603 ==
LOC: JER 15:43 → JERBED 20:16 → J6S 10-24 05:00
PROVIDERS: ADMIT Internal Medicine; ATTEND Internal Medicine
DX: L03.116 Cellulitis of left lower limb (principal); N17.9 Acute kidney failure, unspecified; I25.10 Atherosclerotic heart disease of native coronary artery without angina pectoris; I10 Essential (primary) hypertension; E78.5 Hyperlipidemia, unspecified; E11.9 Type 2 diabetes mellitus without complications; K70.30 Alcoholic cirrhosis of liver without ascites; I48.91 Unspecified atrial fibrillation
CPT/HCPCS: 36415; 73590-TC-LT-FY; 76775-TC; 80048; 80053; 82962; 83036; 85025; 85651; 86140; 87040; 93005; 93010; 93971-TC; 99285-25

== ENCOUNTER 2024-06-26 12:36 | Inpatient (IN) | payer BC ==
[2024-06-26 12:50] VITALS: BMI 37.7
[2024-06-26] MEDS ORDERED: ACETAMINOPHEN 1000 MG/100 ML BAG IVPB ONE (13:35)
[2024-06-26] MEDS ORDERED: ACETAMINOPHEN INJECTION 100 ML ONE (14:02)
[2024-06-26] MEDS ORDERED: PIPERACILLIN/TAZOB 3.375 GM 3.375 GM/50 ML BAG IVPB ONE ×2 (14:03→15:20)
[2024-06-26 14:48] LABS: BASO % 0.6 % (0-2.0); EOS % 1.8 % (0-4.5); HEMATOCRIT 45.7 % (35.4-49); HEMOGLOBIN 15.3 GM/dL (11.7-16.9); LYMPH % 20.3 % (8-40); MCH 31.5 pg (25.7-33.7); MCHC 33.5 g/dl (32.0-35.9); MEAN CELL VOLUME 94.1 fl (80-96); MEAN PLT VOLUME 8.2 fl (7.5-11.1); NEUT % 67.3 % (42.8-82.8); PLATELET COUNT 246 10^3/uL (134-434); RBC 4.86 M/mm3 (4.00-5.60); WHITE BLOOD COUNT 12.6 K/mm3 (4.0-10.0)
[2024-06-26 14:54] LABS: INR 1.12 (0.83-1.09); PROTHROMBIN TIME (PATIENT) 12.8 SEC (9.7-13.0)
[2024-06-26 14:57] LABS: ACTIVATED PTT 32.1 SECONDS (25.2-36.5)
[2024-06-26 15:04] LABS: POTASSIUM 3.9 mmol/L (3.5-5.1)
[2024-06-26 15:06] LABS: CALCIUM 10.1 mg/dL (8.5-10.1)
[2024-06-26 15:07] LABS: ALBUMIN 3.9 g/dl (3.4-5.0); BLOOD UREA NITROGEN 16.5 mg/dL (7-18)
[2024-06-26 15:10] LABS: CREATININE 0.9 mg/dL (0.55-1.3)
[2024-06-26 15:11] LABS: BILIRUBIN,TOTAL 1.1 mg/dL (0.2-1)
[2024-06-26] MEDS: PIPERACILLIN/TAZOB 3.375 GM 3.375 GM in DEXTROSE 5%-WATER - 50 ML IVPB ONE (15:31)
[2024-06-26] MEDS: VANCOMYCIN PREMIX 1.75 GM 1,750 MG/350 ML PIGGYBACK IVPB ONE (16:01)
[2024-06-26] MEDS: INSULIN ASPART SLIDING SCALE (NOVOLOG) 1 VIAL SQ SCH (21:07)
[2024-06-26] MEDS: APIXABAN 5 MG TABLET PO SCH (21:19)
[2024-06-26] MEDS ORDERED: HEPARIN NA (PORCINE) 5,000 UNITS/ML 1ML VIAL SQ SCH (22:00)
[2024-06-27 02:46] VITALS: RESP 18
[2024-06-27] MEDS: SPIRONOLACTONE 25 MG TABLET PO SCH (09:55)
[2024-06-27] MEDS: CEFTRIAXONE 2 GM-D5W BAG 2 GM/50 ML BAG IVPB SCH (09:55)
[2024-06-27] MEDS: LOSARTAN POTASSIUM 50 MG TABLET PO SCH (09:56)
[2024-06-27] MEDS: CLOPIDOGREL BISULFATE 75 MG TABLET (FP) PO SCH (09:56)
[2024-06-28 10:18] LABS: BASO % 0.6 % (0-2.0); EOS % 2.6 % (0-4.5); HEMATOCRIT 41.5 % (35.4-49); HEMOGLOBIN 14.2 GM/dL (11.7-16.9); LYMPH % 20.1 % (8-40); MCHC 34.1 g/dl (32.0-35.9); MEAN CELL VOLUME 93.8 fl (80-96); MEAN PLT VOLUME 8.4 fl (7.5-11.1); MONO % 9.5 % (3.8-10.2); NEUT % 67.2 % (42.8-82.8); PLATELET COUNT 231 10^3/uL (134-434); RBC 4.43 M/mm3 (4.00-5.60); WHITE BLOOD COUNT 10.1 K/mm3 (4.0-10.0)
[2024-06-28 10:29] LABS: POTASSIUM 4.1 mmol/L (3.5-5.1)
[2024-06-28 11:10] LABS: ALBUMIN 3.1 g/dl (3.4-5.0); BLOOD UREA NITROGEN 11.3 mg/dL (7-18)
[2024-06-28 11:13] LABS: BILIRUBIN,TOTAL 0.8 mg/dL (0.2-1); CREATININE 0.9 mg/dL (0.55-1.3)
[2024-06-28 11:14] LABS: TOT PROT 6.6 g/dl (6.4-8.2)
[2024-06-29 10:34] LABS: HEMOGLOBIN 14.3 GM/dL (11.7-16.9); LYMPH % 22.8 % (8-40); MCH 32.4 pg (25.7-33.7); MEAN CELL VOLUME 95.3 fl (80-96); MEAN PLT VOLUME 8.3 fl (7.5-11.1); MONO % 11.1 % (3.8-10.2); NEUT % 62.1 % (42.8-82.8); PLATELET COUNT 241 10^3/uL (134-434); RBC 4.41 M/mm3 (4.00-5.60); RDW 12.6 % (11.9-15.9); WHITE BLOOD COUNT 9.2 K/mm3 (4.0-10.0)
[2024-06-29 10:40] LABS: POTASSIUM 4.3 mmol/L (3.5-5.1)
[2024-06-29 10:46] LABS: ALBUMIN 3.2 g/dl (3.4-5.0); CALCIUM 8.9 mg/dL (8.5-10.1)
[2024-06-29 10:47] LABS: BLOOD UREA NITROGEN 12.8 mg/dL (7-18)
[2024-06-29 10:49] LABS: CREATININE 0.9 mg/dL (0.55-1.3)
[2024-06-29 10:51] LABS: BILIRUBIN,TOTAL 0.7 mg/dL (0.2-1); TOT PROT 6.7 g/dl (6.4-8.2)
[2024-06-29] MEDS: INSULIN (LEVEMIR) 100 UNITS/ML UNITS SQ SCH (21:38)
[2024-06-30 09:52] LABS: BASO % 0.9 % (0-2.0); EOS % 3.1 % (0-4.5); HEMATOCRIT 42.4 % (35.4-49); LYMPH % 21.6 % (8-40); MCH 31.6 pg (25.7-33.7); MEAN CELL VOLUME 95.8 fl (80-96); MEAN PLT VOLUME 8.4 fl (7.5-11.1); MONO % 8.9 % (3.8-10.2); NEUT % 65.5 % (42.8-82.8); PLATELET COUNT 187 10^3/uL (134-434); RBC 4.43 M/mm3 (4.00-5.60); RDW 12.8 % (11.9-15.9); WHITE BLOOD COUNT 8.3 K/mm3 (4.0-10.0)
[2024-06-30 11:02] LABS: ALBUMIN 3.3 g/dl (3.4-5.0); BLOOD UREA NITROGEN 10.8 mg/dL (7-18); CALCIUM 9.1 mg/dL (8.5-10.1)
[2024-06-30 11:09] LABS: BILIRUBIN,TOTAL 0.6 mg/dL (0.2-1); CREATININE 0.9 mg/dL (0.55-1.3)
[2024-06-30 13:14] VITALS: BP 154/93; PULSE 66; TEMP 98.8
== END 2024-06-30 15:14 | disposition home or self-care (01) | DRG 603 ==
LOC: JER 12:36 → JERBED 15:45 → J6S 17:32
PROVIDERS: ADMIT Internal Medicine; ATTEND Internal Medicine
DX: L03.116 Cellulitis of left lower limb (principal); L97.528 Non-pressure chronic ulcer of other part of left foot with other specified severity; E11.40 Type 2 diabetes mellitus with diabetic neuropathy, unspecified; I10 Essential (primary) hypertension; K70.30 Alcoholic cirrhosis of liver without ascites; E11.621 Type 2 diabetes mellitus with foot ulcer; I48.91 Unspecified atrial fibrillation
CPT/HCPCS: 36415; 73610-TC-LT-FY; 73630-TC-LT; 73718-TC-LT; 80053; 82962; 83036; 83605; 85025; 85610; 85651; 85730; 86140; 86850; 86900; 86901; 87040; 99285-25; J3370

== ENCOUNTER 2024-08-06 20:40 | Inpatient (IN) | payer BC ==
[2024-08-06] MEDS ORDERED: ACETAMINOPHEN INJECTION 100 ML ONE (21:05)
[2024-08-06] MEDS: ACETAMINOPHEN 1000 MG/100 ML BAG IVPB ONE (21:28)
[2024-08-06] MEDS ORDERED: PIPERACILLIN/TAZOB 4.5 GM 4.5 GM/100 ML BAG IVPB ONE (21:31)
[2024-08-06 21:35] LABS: BASO % 0.4 % (0-2.0); EOS % 2.3 % (0-4.5); HEMATOCRIT 40.6 % (35.4-49); HEMOGLOBIN 13.3 GM/dL (11.7-16.9); LYMPH % 17.4 % (8-40); MCH 29.9 pg (25.7-33.7); MCHC 32.9 g/dl (32.0-35.9); MEAN CELL VOLUME 90.9 fl (80-96); MEAN PLT VOLUME 7.7 fl (7.5-11.1); MONO % 10.1 % (3.8-10.2); NEUT % 69.8 % (42.8-82.8); PLATELET COUNT 185 10^3/uL (134-434); RBC 4.47 M/mm3 (4.00-5.60); RDW 12.7 % (11.9-15.9); WHITE BLOOD COUNT 12.4 K/mm3 (4.0-10.0)
[2024-08-06] MEDS: PIPERACILLIN/TAZOB 4.5 GM 4.5 GM in DEXTROSE 5%-WATER 100 ML IVPB ONE (21:47)
[2024-08-06 22:02] LABS: POTASSIUM 3.4 mmol/L (3.5-5.1)
[2024-08-06 22:04] LABS: CALCIUM 9.5 mg/dL (8.5-10.1)
[2024-08-06 22:05] LABS: ALBUMIN 3.6 g/dl (3.4-5.0); BLOOD UREA NITROGEN 13.3 mg/dL (7-18); MAGNESIUM 1.8 mg/dL (1.8-2.4)
[2024-08-06 22:08] LABS: CREATININE 0.8 mg/dL (0.55-1.3); PHOSPHOROUS 2.6 mg/dL (2.5-4.9)
[2024-08-06 22:09] LABS: BILIRUBIN,TOTAL 1.1 mg/dL (0.2-1)
[2024-08-06] MEDS: VANCOMYCIN PREMIX 1.75 GM 1,750 MG/350 ML PIGGYBACK IVPB ONE (22:22)
[2024-08-06 22:35] LABS: INR 1.15 (0.83-1.09); PROTHROMBIN TIME (PATIENT) 12.9 SEC (9.7-13.0)
[2024-08-06 22:38] LABS: ACTIVATED PTT 30.6 SECONDS (25.2-36.5)
[2024-08-07] MEDS ORDERED: DOCUSATE SODIUM 100 MG CAPSULE (FP) PO PRN (00:14)
[2024-08-07] MEDS ORDERED: ACETAMINOPHEN 325 MG TABLET (FP) PO PRN (00:14)
[2024-08-07] MEDS ORDERED: POTASSIUM CHLORIDE ORAL LIQUID 20 MEQ/15 ML ONE (00:23)
[2024-08-07] MEDS: POTASSIUM CHLORIDE ORAL LIQUID 20 MEQ/15 ML PO ONE (00:27)
[2024-08-07] MEDS ORDERED: PIPERACILLIN/TAZOB 3.375 GM 3.375 GM/50 ML BAG IVPB ONE (03:10)
[2024-08-07] MEDS: PIPERACILLIN/TAZOB 3.375 GM 3.375 GM in DEXTROSE 5%-WATER - 50 ML IVPB SCH (03:24)
[2024-08-07 08:16] VITALS: BMI 38.1
[2024-08-07] MEDS ORDERED: APIXABAN 5 MG TABLET PO SCH (10:00)
[2024-08-07] MEDS: ATORVASTATIN CA 20 MG TABLET (FP) PO SCH (11:03)
[2024-08-07] MEDS: CLOPIDOGREL BISULFATE 75 MG TABLET (FP) PO SCH (11:03)
[2024-08-07] MEDS: LOSARTAN POTASSIUM 50 MG TABLET PO SCH (11:03)
[2024-08-07] MEDS: NADOLOL 40 MG TABLET (FP) PO SCH (11:03)
[2024-08-07] MEDS: SPIRONOLACTONE 25 MG TABLET PO SCH (11:03)
[2024-08-07] MEDS: PANTOPRAZOLE 40 MG TABLET PO SCH (11:03)
[2024-08-07] MEDS: INSULIN ASPART SLIDING SCALE (NOVOLOG) 1 VIAL SQ SCH (11:27)
[2024-08-07] MEDS: VANCOMYCIN/WATER 2 GRAMS 2,000 MG/400 ML PIGGYBACK IVPB SCH (12:00)
[2024-08-07 12:47] LABS: BASO % 0.9 % (0-2.0); HEMATOCRIT 40.3 % (35.4-49); HEMOGLOBIN 13.7 GM/dL (11.7-16.9); LYMPH % 18.9 % (8-40); MCH 30.8 pg (25.7-33.7); MEAN CELL VOLUME 90.5 fl (80-96); MEAN PLT VOLUME 7.9 fl (7.5-11.1); MONO % 8.5 % (3.8-10.2); NEUT % 68.7 % (42.8-82.8); PLATELET COUNT 190 10^3/uL (134-434); RBC 4.45 M/mm3 (4.00-5.60); RDW 12.7 % (11.9-15.9); WHITE BLOOD COUNT 9.4 K/mm3 (4.0-10.0)
[2024-08-07 13:48] LABS: POTASSIUM 3.7 mmol/L (3.5-5.1)
[2024-08-07 13:50] LABS: BLOOD UREA NITROGEN 9.1 mg/dL (7-18)
[2024-08-07 13:51] LABS: CALCIUM 9.2 mg/dL (8.5-10.1)
[2024-08-07 13:57] LABS: CREATININE 0.8 mg/dL (0.55-1.3)
[2024-08-07] MEDS: PIPERACILLIN/TAZOB 4.5 GM 4.5 GM/100 ML BAG IVPB SCH (17:13)
[2024-08-07] MEDS: COLLAGENASE CLOSTRIDIUM HIST. 30 GRAMS TUBE TP SCH (17:45)
[2024-08-08] MEDS: VANCOMYCIN 2,000 MG in DEXTROSE 5%-WATER - 500 ML IVPB SCH (06:39)
[2024-08-08] MEDS: PIPERACILLIN/TAZOB 3.375 GM 3.375 GM in DEXTROSE 5%-WATER - 50 ML IVPB SCH (06:39)
[2024-08-08 08:39] LABS: BASO % 0.8 % (0-2.0); EOS % 3.8 % (0-4.5); HEMATOCRIT 40.2 % (35.4-49); HEMOGLOBIN 13.7 GM/dL (11.7-16.9); LYMPH % 21.6 % (8-40); MCH 30.8 pg (25.7-33.7); MCHC 34.1 g/dl (32.0-35.9); MEAN CELL VOLUME 90.4 fl (80-96); MONO % 9.6 % (3.8-10.2); NEUT % 64.2 % (42.8-82.8); PLATELET COUNT 190 10^3/uL (134-434); RBC 4.45 M/mm3 (4.00-5.60); RDW 12.9 % (11.9-15.9)
[2024-08-08 08:58] LABS: POTASSIUM 4.2 mmol/L (3.5-5.1)
[2024-08-08 09:05] LABS: ALBUMIN 3.3 g/dl (3.4-5.0); BLOOD UREA NITROGEN 9.9 mg/dL (7-18); CALCIUM 9.3 mg/dL (8.5-10.1)
[2024-08-08 09:08] LABS: CREATININE 0.8 mg/dL (0.55-1.3)
[2024-08-08 09:10] LABS: TOT PROT 6.7 g/dl (6.4-8.2)
[2024-08-09 14:43] VITALS: RESP 19; TEMP 98.4
[2024-08-10 05:08] VITALS: PULSE 58
[2024-08-10 06:54] VITALS: BP 169/68
== END 2024-08-10 09:50 | disposition left against medical advice (07) | DRG 603 ==
LOC: JER 20:40 → JERBED 21:54 → J7W 08-07 07:44
PROVIDERS: ADMIT Internal Medicine; ATTEND Internal Medicine
DX: L03.116 Cellulitis of left lower limb (principal); E78.5 Hyperlipidemia, unspecified; K21.9 Gastro-esophageal reflux disease without esophagitis; I10 Essential (primary) hypertension; E11.9 Type 2 diabetes mellitus without complications
CPT/HCPCS: 0241U-QW; 36415; 73590-TC-LT-FY; 73610-TC-LT-FY; 73630-TC-LT; 73718-TC-LT; 80048; 80053; 82962; 83036; 83605; 83735; 84100; 85025; 85610; 85730; 86140; 86850; 86900; 86901; 87040; 87070; 87186; 87205; 93005; 93010; 93971-TC; 99285-25; J3370